=== PATIENT | female | born 1985 | race Caucasian/White ===

== ENCOUNTER → 2017-12-21 | Outpatient (CLI) | payer OTHER ==
--- NOTE | 2017-12-21 09:22 | US ---
EXAMINATION TYPE: US abdomen limited DATE OF EXAM: 12/21/2017 COMPARISON: US CLINICAL HISTORY: R94.5 Elevated LFT's. EXAM MEASUREMENTS: Liver Length: 18.0 cm Gallbladder Wall: Surgically absent CBD: 0.5 cm Right Kidney: 9.8 x 3.6 x 4.6 cm Patient of large body habitus. Pancreas: mostly obscured by bowel gas, portions visualized wnl Liver: Increased attenuation, decreased visualization of vessels suggestive of fatty infiltrate, enl arged Gallbladder: Surgically absent Evidence for sonographic Fraser's sign: no CBD: wnl Right Kidney: No hydronephrosis or masses seen IMPRESSION: Heterogenous hyperechoic hepatic echotexture and hepatomegaly, most commonly related to h epatic steatosis.
== END | disposition home or self-care (01) ==
LOC: RADUSWWP 07:42
PROVIDERS: ATTEND Internal Medicine
DX: R16.0 Hepatomegaly, not elsewhere classified (principal)
CPT/HCPCS: 76705

== ENCOUNTER 2020-05-18 14:59 | Emergency (ER) | payer OTHER ==
[2020-05-18 15:07] VITALS: RESP 18
[2020-05-18] MEDS ORDERED: MECLIZINE 12.5 MG TAB PO STA (15:16)
[2020-05-18] MEDS ORDERED: SODIUM CHLORIDE 0.9% 1,000 ML IV STA (15:16)
--- NOTE | 2020-05-18 15:35 | ED ---
General Adult HPI - General Chief complaint: Dizziness Stated complaint: dizziness Time Seen by Provider: 05/18/20 15:09 Source: patient, RN notes reviewed, old records reviewed Mode of arrival: ambulatory Limitations: no limitations - History of Present Illness Initial comments: 34-year-old female past medical history of asthma presenting with dizziness. Patient states her symptoms have been present since yesterday morning when she woke. She states she does feel somewhat unsteady on her feet. She denies focal numbness or weakness. Denies headache. Denies vision changes. She states that today all she had was a few crackers and otherwise has not eaten today. She denies chest pain or dyspnea. Denies palpitations. Denies abdominal pain. D enies diarrhea or vomiting. Denies fever. Denies URI symptoms. Denies ear pain. She is not currently on any medication. - Related Data Home Medications Medication Instructions Recorded Confirmed Ipratropium [place] [Atrovent Hfa] 2 puff INHALATION RT-Q6H PRN 06/30/16 06/30/16 Previous Rx's Medication Instructions Recorded Cephalexin [Keflex] 500 mg PO Q12HR #20 cap 05/18/20 Allergies Allergy/AdvReac Type Severity Reaction Status Date / Time No Known Allergies Allergy Verified 05/18/20 15:06 Review of Systems ROS Statement: Those systems with pertinent positive or pertinent negative responses have been documented in the HPI. ROS Other: All systems not noted in ROS Statement are negative. Past Medical History Past Medical History: Asthma Additional Past Medical History / Comment(s): Obstetric history: First was a vaginal delivery that was quite traumatic for the patient and she continues to have perineal pain. She then had 3 elective abortions. This is her fifth and she has had care with ma since 7 weeks. O+, abs neg, Rub Imm, HEp B neg, HIV NR, RPR NR. abnormal 1hr but normal 3hr GTT. History of Any Multi-Drug Resistant Organisms: None Reported Past Surgical History: Adenoidectomy, Cholecystectomy Additional Past Surgical History / Comment(s): D&C Past Anesthesia/Blood Transfusion Reactions: No Reported Reaction Past Psychological History: No Psychological Hx Reported Smoking Status: Current every day smoker Past Alcohol Use History: Occasional Past Drug Use History: None Reported - Past Family History Mother Family Medical History: No Reported History General Exam Limitations: no limitations General appearance: alert, in no apparent distress Head exam: Present: atraumatic, normocephalic Eye exam: Present: normal appearance, PERRL, EOMI. Absent: scleral icterus, conjunctival injection, nystagmus ENT exam: Present: mucous membranes dry Neck exam: Present: normal inspection. Absent: tenderness, meningismus Respiratory exam: Present: normal lung sounds bilaterally. Absent: respiratory distress, wheezes Cardiovascular Exam: Present: regular rate, normal rhythm GI/Abdominal exam: Present: soft. Absent: distended, tenderness Extremities exam: Present: normal inspection, normal capillary refill. Absent: pedal edema Neurological exam: Present: alert, oriented X3, CN II-XII intact, normal gait, other (Negative Romberg, normal [id number] bilaterally, no ataxia). Absent: motor sensory deficit Psychiatric exam: Present: normal affect, normal mood Skin exam: Present: warm, dry, intact. Absent: cyanosis, diaphoretic Course Vital Signs 05/18/20 15:03 Temperature 98.8 F Pulse Rate 89 Respiratory 18 Rate Blood Pressure 135/90 O2 Sat by Pulse 96 Oximetry EKG Findings - EKG Comments: EKG Findings:: EKG: Normal sinus rhythm, rate of 84 NE interval 1:30, QRS duration 78, QTC 441, no ST segment elevation Medical Decision Making - Medical Decision Making 34-year-old female with dizziness. No alarming features on history or physical exam. Symptoms have been present for 48 hours. No headache, no focal neurological finding is, no palpitations or chest pain. EKG is sinus rhythm with no ischemic changes. Patient has normal CBC, normal CMP, negative troponin, urinalysis does show 13 red cells, 3 white cells, occasional bacteria. His will be cultured and the patient will be started on Keflex. She will maintain oral hydration, she will eat regular healthy meals. She will return with worsening or changing symptoms. Patient given strict return parameters. - Lab Data Result diagrams: 05/18/20 15:28 05/18/20 15:28 Lab Results 05/18/20 05/18/20 05/18/20 Range/Units 15:28 15:28 15:28 WBC 6.5 (3.8-10.6) k/uL RBC 4.33 (3.80-5.40) m/uL Hgb 13.4 (11.4-16.0) gm/dL Hct 41.2 (34.0-46.0) % MCV 95.1 (80.0-100.0) fL MCH 31.0 (25.0-35.0) pg MCHC 32.6 (31.0-37.0) g/dL RDW 12.4 (11.5-15.5) % Plt Count 239 (150-450) k/uL Neutrophils % 58 % Lymphocytes % 28 % Monocytes % 5 % Eosinophils % 6 % Basophils % 2 % Neutrophils # 3.7 (1.3-7.7) k/uL Lymphocytes # 1.8 (1.0-4.8) k/uL Monocytes # 0.3 (0-1.0) k/uL Eosinophils # 0.4 (0-0.7) k/uL Basophils # 0.1 (0-0.2) k/uL Sodium 137 (137-145) mmol/L Potassium 4.1 (3.5-5.1) mmol/L Chloride 105 (98-107) mmol/L Carbon Dioxide 23 (22-30) mmol/L Anion Gap 9 mmol/L BUN 12 (7-17) mg/dL Creatinine 0.59 (0.52-1.04) mg/dL Est GFR (CKD-EPI)AfAm >90 (>60 ml/min/1.73 sqM) Est GFR (CKD-EPI)NonAf >90 (>60 ml/min/1.73 sqM) Glucose 126 H (74-99) mg/dL Calcium 9.2 (8.4-10.2) mg/dL Magnesium 1.9 (1.6-2.3) mg/dL Total Bilirubin 0.5 (0.2-1.3) mg/dL AST 29 (14-36) U/L ALT 39 H (4-34) U/L Alkaline Phosphatase 80 (38-126) U/L Troponin I <0.012 (0.000-0.034) ng/mL Total Protein 7.4 (6.3-8.2) g/dL Albumin 4.4 (3.5-5.0) g/dL Urine Color Urine Appearance (Clear) Urine pH (5.0-8.0) Ur Specific [place] (1.001-1.035) Urine Protein (Negative) Urine Glucose (UA) (Negative) Urine Ketones (Negative) Urine Blood (Negative) Urine Nitrite (Negative) Urine Bilirubin (Negative) Urine Urobilinogen (<2.0) mg/dL Ur Leukocyte Esterase (Negative) Urine RBC (0-5) /hpf Urine WBC (0-5) /hpf Ur Squamous Epith Cells (0-4) /hpf Urine Bacteria (None) /hpf Urine Mucus (None) /hpf Urine HCG, Qual (Not Detectd) 05/18/20 05/18/20 Range/Units 15:42 15:42 WBC (3.8-10.6) k/uL RBC (3.80-5.40) m/uL Hgb (11.4-16.0) gm/dL Hct (34.0-46.0) % MCV (80.0-100.0) fL MCH (25.0-35.0) pg MCHC (31.0-37.0) g/dL RDW (11.5-15.5) % Plt Count (150-450) k/uL Neutrophils % % Lymphocytes % % Monocytes % % Eosinophils % % Basophils % % Neutrophils # (1.3-7.7) k/uL Lymphocytes # (1.0-4.8) k/uL Monocytes # (0-1.0) k/uL Eosinophils # (0-0.7) k/uL Basophils # (0-0.2) k/uL Sodium (137-145) mmol/L Potassium (3.5-5.1) mmol/L Chloride (98-107) mmol/L Carbon Dioxide (22-30) mmol/L Anion Gap mmol/L BUN (7-17) mg/dL Creatinine (0.52-1.04) mg/dL Est GFR (CKD-EPI)AfAm (>60 ml/min/1.73 sqM) Est GFR (CKD-EPI)NonAf (>60 ml/min/1.73 sqM) Glucose (74-99) mg/dL Calcium (8.4-10.2) mg/dL Magnesium (1.6-2.3) mg/dL Total Bilirubin (0.2-1.3) mg/dL AST (14-36) U/L ALT (4-34) U/L Alkaline Phosphatase (38-126) U/L Troponin I (0.000-0.034) ng/mL Total Protein (6.3-8.2) g/dL Albumin (3.5-5.0) g/dL Urine Color Yellow Urine Appearance Cloudy H (Clear) Urine pH 6.0 (5.0-8.0) Ur Specific [place] 1.019 (1.001-1.035) Urine Protein Negative (Negative) Urine Glucose (UA) Negative (Negative) Urine Ketones Negative (Negative) Urine Blood Moderate H (Negative) Urine Nitrite Negative (Negative) Urine Bilirubin Negative (Negative) Urine Urobilinogen <2.0 (<2.0) mg/dL Ur Leukocyte Esterase Large H (Negative) Urine RBC 13 H (0-5) /hpf Urine WBC 3 (0-5) /hpf Ur Squamous Epith Cells 10 H (0-4) /hpf Urine Bacteria Occasional H (None) /hpf Urine Mucus Few H (None) /hpf Urine HCG, Qual Not Detected (Not Detectd) Disposition Clinical Impression: Dehydration, Dizziness Disposition: HOME SELF-CARE Condition: Good Instructions (If sedation given, give patient instructions): Dizziness (ED), Dehydration (ED), Urinary Tract Infection in Women (ED), Lightheadedness (ED) Additional Instructions: Please return the emergency department with worsening or changing symptoms Prescriptions: Cephalexin [Keflex] 500 mg PO Q12HR #20 cap Is patient prescribed a controlled substance at d/c from ED?: No Referrals: Hattie Antonio MD [Primary Care Provider] - 1-2 days Time of Disposition: 16:34
[2020-05-18 15:36] LABS: Basophils # (A) 0.1 k/uL (0-0.2); Basophils % (A) 2 %; Eosinophils # (A) 0.4 k/uL (0-0.7); Eosinophils % (A) 6 %; HCT 41.2 % (34.0-46.0); HGB 13.4 gm/dL (11.4-16.0); Lymphocytes # (A) 1.8 k/uL (1.0-4.8); Lymphocytes % (A) 28 %; MCHC 32.6 g/dL (31.0-37.0); MCV 95.1 fL (80.0-100.0); Mean Platelet Volume 8.7; Monocytes # (A) 0.3 k/uL (0-1.0); Monocytes % (A) 5 %; Neutrophils # (A) 3.7 k/uL (1.3-7.7); Neutrophils % (A) 58 %; Platelet Count 239 k/uL (150-450); RBC 4.33 m/uL (3.80-5.40); RDW 12.4 % (11.5-15.5); WBC 6.5 k/uL (3.8-10.6)
[2020-05-18 15:50] LABS: ALT 39 U/L (4-34); AST 29 U/L (14-36); African American GFR (CKD) >90 (>60 ml/min/1.73 sqM); Albumin 4.4 g/dL (3.5-5.0); Alkaline Phosphatase 80 U/L (38-126); Anion Gap 9 mmol/L; Blood Urea Nitrogen 12 mg/dL (7-17); Calcium 9.2 mg/dL (8.4-10.2); Carbon Dioxide 23 mmol/L (22-30); Chloride 105 mmol/L (98-107); Glucose 126 mg/dL (74-99); Magnesium 1.9 mg/dL (1.6-2.3); Non-African American GFR(CKD) >90 (>60 ml/min/1.73 sqM); Potassium 4.1 mmol/L (3.5-5.1); Sodium 137 mmol/L (137-145); Total Bilirubin 0.5 mg/dL (0.2-1.3); Total Protein 7.4 g/dL (6.3-8.2)
[2020-05-18 15:53] LABS: Appearance,Urine Cloudy (Clear); Bacteria,Urine Occasional /hpf; Bilirubin,Urine Negative (Negative); Blood,Urine Moderate (Negative); Color,Urine Yellow; Glucose,Urine (UA) Negative (Negative); Ketones,Urine Negative (Negative); Leukocyte Esterase,Urine Large (Negative); Mucus,Urine Few /hpf; Nitrite,Urine Negative (Negative); Protein,Urine Negative (Negative); RBC,Urine 13 /hpf (0-5); Specific Gravity,Urine 1.019 (1.001-1.035); Squamous Epithelial Cell,Urine 10 /hpf (0-4); Urobilinogen,Urine <2.0 mg/dL (<2.0); WBC,Urine 3 /hpf (0-5)
[2020-05-18 17:07] VITALS: BP 130/81; PULSE 77; TEMP 98.1
== END 2020-05-18 17:07 | disposition home or self-care (01) ==
LOC: EC 14:59
DX: R42 Dizziness and giddiness (principal); E86.0 Dehydration; J45.909 Unspecified asthma, uncomplicated; F17.200 Nicotine dependence, unspecified, uncomplicated
CPT/HCPCS: 36415; 80053; 81001; 81025; 83735; 84484; 85025; 93005; 96360; 99284

== ENCOUNTER 2021-07-20 07:00 | Emergency (ER) | payer OTHER ==
[2021-07-20 07:05] VITALS: BP 168/106; PULSE 91; RESP 18; TEMP 98.2
[2021-07-20] MEDS ORDERED: GELATIN SPONGE,ABSORB (SMALL) 1 EACH SPONGE TOPICAL STA (07:18)
[2021-07-20] MEDS ORDERED: DIPH,PERTUS(ACELL)TETVAC-LF 0.5 ML VIAL IM ONE (07:25)
[2021-07-20] MEDS ORDERED: LIDOCAINE 1% INJ 10MG/ML (20 ML MDV) SQ ONE (07:25)
[2021-07-20] MEDS ORDERED: oxyCODONE-APAP 10-325MG 1 EACH TAB PO STA (07:31)
--- NOTE | 2021-07-20 07:37 | ED ---
General Adult HPI - General Chief complaint: Wound/Laceration Stated complaint: Left finger laceration Time Seen by Provider: 07/20/21 07:15 Source: patient Mode of arrival: ambulatory Limitations: no limitations - History of Present Illness Initial comments: Dictation was produced using [employer] dictation software. please excuse any grammatical, word or spelling errors. Chief Complaint: 36-year-old female presents with traumatic amputation of left third digit History of Present Illness: Patient 36-year-old female no significant past medical history. She states that 1 hour prior to arrival she was in her house. She accidentally slammed the door on her third digit of her left hand. Patient elected her hand and noticed that the tip of her left digit was missing. Patient states that she has extreme pain to her left third digit. She does not report when her last tetanus shot was. Patient denies . She states her last menstrual period was a week ago. Denies that she can be . No other complaints. Patient placed the amputated piece into a paper towel and brought to the emergency room. The ROS documented in this emergency department record has been reviewed and confirmed by me. Those systems with pertinent positive or negative responses have been documented in the HPI. All other systems are other negative and/or noncontributory. PHYSICAL EXAM: General Impression: Alert and oriented x3, acute distress secondary to pain Left hand: Current medication amputation to the distal left third digit distal to the DIP. There is visualization of the distal bone of the tuft. Amputated portion measures approximately 1 cm in length encompasses the whole nail bed. Psych: Tearful ED course: 36-year-old female presents with traumatic amputation of the left third digit. Accident occurred approximate 1 hour prior to arrival. Vital signs upon arrival are within acceptable limits. Patient is in acute distress. Patient offered digital block for relief. I was able to put half a cc of anesthetic into the lateral digital nerve. Patient did not tolerate digital block well. she states that it was too painful and does not want me to inject anymore. Tetanus was updated. Patient denies . She would like a pain pill. Given a Percocet. Finger x-ray shows amputation of distal aspect of the left third digit involving soft tissue and bone. Patient is clean-cut amputation. Gelfoam was applied and bandage was placed. per case discussed with orthopedic surgery who recommends the patient be given referral to hand specialist Dr. Conklin - Related Data Home Medications Medication Instructions Recorded Confirmed Ipratropium [place] [Atrovent Hfa] 2 puff INHALATION RT-Q6H PRN 06/30/16 06/30/16 Previous Rx's Medication Instructions Recorded Cephalexin [Keflex] 500 mg PO Q12HR #20 cap 05/18/20 HYDROcodone/APAP 5-325MG [[place] 1 tab PO Q6HR PRN 3 Days #12 tab 07/20/21 5-325] Allergies Allergy/AdvReac Type Severity Reaction Status Date / Time No Known Allergies Allergy Verified 07/20/21 07:05 Review of Systems ROS Statement: Those systems with pertinent positive or pertinent negative responses have been documented in the HPI. ROS Other: All systems not noted in ROS Statement are negative. Past Medical History Past Medical History: Asthma Additional Past Medical History / Comment(s): Obstetric history: First was a vaginal delivery that was quite traumatic for the patient and she continues to have perineal pain. She then had 3 elective abortions. This is her fifth and she has had care with de since 7 weeks. O+, abs neg, Rub Imm, HEp B neg, HIV NR, RPR NR. abnormal 1hr but normal 3hr GTT. History of Any Multi-Drug Resistant Organisms: None Reported Past Surgical History: Adenoidectomy, Cholecystectomy Additional Past Surgical History / Comment(s): D&C Past Anesthesia/Blood Transfusion Reactions: No Reported Reaction Past Psychological History: No Psychological Hx Reported Smoking Status: Current every day smoker Past Alcohol Use History: Occasional Past Drug Use History: None Reported - Past Family History Mother Family Medical History: No Reported History General Exam Limitations: no limitations Course Vital Signs 07/20/21 07:04 Temperature 98.2 F Pulse Rate 91 Respiratory 18 Rate Blood Pressure 168/106 O2 Sat by Pulse 98 Oximetry Disposition Clinical Impression: Amputation, finger, traumatic Disposition: HOME SELF-CARE Condition: Fair Instructions (If sedation given, give patient instructions): Finger Amputation (ED) Prescriptions: HYDROcodone/APAP 5-325MG [[place] 5-325] 1 tab PO Q6HR PRN 3 Days #12 tab PRN Reason: Severe Pain Is patient prescribed a controlled substance at d/c from ED?: Yes If prescribed controlled substance>3 days was MAPS reviewed?: Prescribed <3 Days Referrals: Rubio Conklin DO [Doctor of Osteopathic Medicine] - 1-2 days
--- NOTE | 2021-07-20 07:54 | XR ---
Left third digit. HISTORY: Trauma. COMPARISON: None TECHNIQUE: 3 views of the left third digit were obtained. There is amputation of the tip of the third digit involving the soft tissues in the distal aspect of the distal phalanx. A small osseous structure is seen within the soft tissues adjacent to the volar a spect of the distal phalanx. IMPRESSION: Amputation of the distal aspect left third digit involving soft tissue and bone as described above.
--- NOTE | 2021-07-20 08:39 | P.PN ---
Progress Note - Text Progress Note Date: 07/20/21 I was called this morning on this patient by Dr. Brown in the ED. She sustained a traumatic finger tip amputation with exposed distal phalanx. I recommended that she follow-up with a hand-surgeon, but think it is reasonable to provide wound care, antibiotics and discharge home from the ED this morning. I recommended PROMPT follow-up with a hand surgeon early next week for definitive care. The patient will follow-up with hand surgeon Dr. [place] Conklin.
--- NOTE | 2021-07-20 08:45 | ED ---
Disposition Clinical Impression: Amputation, finger, traumatic Disposition: HOME SELF-CARE Condition: Fair Instructions (If sedation given, give patient instructions): Finger Amputation (ED) Prescriptions: Cephalexin [Keflex] 500 mg PO Q6HR 5 Days #20 cap HYDROcodone/APAP 5-325MG [[place] 5-325] 1 tab PO Q6HR PRN 3 Days #12 tab PRN Reason: Severe Pain Is patient prescribed a controlled substance at d/c from ED?: Yes If prescribed controlled substance>3 days was MAPS reviewed?: Prescribed <3 Days Referrals: Rubio Conklin DO [Doctor of Osteopathic Medicine] - 1-2 days
--- NOTE | 2021-07-20 11:03 | ED ---
Disposition Clinical Impression: Amputation, finger, traumatic Disposition: HOME SELF-CARE Condition: Fair Instructions (If sedation given, give patient instructions): Finger Amputation (ED) Prescriptions: Cephalexin [Keflex] 500 mg PO Q6HR 5 Days #20 cap Cephalexin [Keflex] 500 mg PO Q6HR 5 Days #20 cap HYDROcodone/APAP 5-325MG [[place] 5-325] 1 tab PO Q6HR PRN 3 Days #12 tab PRN Reason: Severe Pain HYDROcodone/APAP 5-325MG [[place] 5-325] 1 tab PO Q6HR PRN 3 Days #12 tab PRN Reason: Severe Pain Is patient prescribed a controlled substance at d/c from ED?: Yes If prescribed controlled substance>3 days was MAPS reviewed?: Prescribed <3 Days Referrals: Rubio Conklin DO [Doctor of Osteopathic Medicine] - 1-2 days
== END 2021-07-20 08:22 | disposition home or self-care (01) ==
LOC: EC 07:00
DX: S68.113A Complete traumatic metacarpophalangeal amputation of left middle finger, initial encounter (principal); J45.909 Unspecified asthma, uncomplicated; F17.200 Nicotine dependence, unspecified, uncomplicated; Z90.49 Acquired absence of other specified parts of digestive tract; W22.09XA Striking against other stationary object, initial encounter
CPT/HCPCS: 99283; 90471; 64450; 73140; 90715; J2001

== ENCOUNTER 2021-07-23 08:47 | Day surgery (SDC) | payer OTHER ==
[2021-07-22 12:37] VITALS: BMI 41.9
--- NOTE | 2021-07-22 13:04 | P.HPOR ---
History of Present Illness H&P Date: 07/22/21 Chief Complaint: Left middle finger amputation New Patient Hand Surgery H&P Office Note Age: 36 year Height: 5'5.5" Weight: 256 lbs BMI: 41.95 kg/m2 Subjective: This is a 36 year old female that presents today for initial evaluation regarding a right middle finger tip amputation that occurred on 07/20/21. The injury occurred when the patient accidentally slammed the bedroom door on her left middle finger which resulted in complete avulsion of the tip of her left middle finger. She brought the finger tip to the ED but it was found not to be amendable to replantation therefore bedside irrigation was performed and she was put in a finger dressing and splint and given Keflex which she has been taken. She denies any prior injury to the finger in the past. The 16 point Review of Systems has been reviewed with patient. Social history Smoking: current smoker Smoking Amount: 1/2 PPD Alcohol: occasional alcohol Past Medical History: ASTHMA Surgical / Procedural History: SECTION CHOLECYSTECTOMY TONSILLECTOMY/ADENOIDECTOMY Family History: Mother: alive & well. Father: unknown Sibling(s): none Medications: Rx: ProAir HFA 90 mcg/actuation aerosol inhaler Ref: 0 Instructions: inhale 1 - 2 puffs (90 - 180 mcg) by inhalation route every 4 hours as needed Physical Examination: LUE: AIN/PIN/Radial/Ulnar/Median motor intact. Radial/Ulnar/Median SILT. 2+/4 Radial/Ulnar pulses palpated. Remainder of examination of left middle finger limited due to patient not being able to tolerate complete dressing removal in office. She was able to show a picture of the injury which reveals a transverse tip amputation of the middle finger with complete avulsion of the distal soft tissue and nail plate distal to the level of the germinal matrix with exposed distal phalanx. Imaging: AP/Lateral/oblique views of the left middle finger demonstrate an amputation of the tip of the third digit with a small ossific fragment at the distal, volar and radial portion of the distal phalanx. No other acute fractures seen. Impression: 1.) Left middle finger distal tip amputation with exposed distal phalanx. Plan: Diagnosis and treatment options were discussed with the patient. Due to inadequate current soft tissue coverage of the distal phalanx tip I recommend surgical intervention involving revision amputation of the left middle finger. Risks and benefits of surgery were discussed with the patient including bleeding, infection, damage to surrounding tissue, neuroma formation, hypersensitivity, cold intolerance, nail deformity, shortening of digit, and possible need for further surgery and she was understanding of this and wished to proceed with surgical intervention. She may do daily dressing changes as needed with an occlusive dressing until the day of surgery and is to finish her course of antibiotics. Pre-operative labs are ordered and she will be scheduled for left middle finger revision amputation in the near future. -Rubio Conklin DO Orthopedic Hand/Upper Extremity Surgeon Past Medical History Past Medical History: Asthma Additional Past Medical History / Comment(s): Obstetric history: First was a vaginal delivery that was quite traumatic for the patient and she continues to have perineal pain. She then had 3 elective abortions. This is her fifth and she has had care with me since 7 weeks. O+, abs neg, Rub Imm, HEp B neg, HIV NR, RPR NR. abnormal 1hr but normal 3hr GTT. History of Any Multi-Drug Resistant Organisms: None Reported Past Surgical History: Adenoidectomy, Section, Cholecystectomy, Tonsillectomy Additional Past Surgical History / Comment(s): D&C Past Anesthesia/Blood Transfusion Reactions: No Reported Reaction Smoking Status: Current every day smoker - Past Family History Mother Family Medical History: No Reported History Medications and Allergies Home Medications Medication Instructions Recorded Confirmed Type Ipratropium [place] [Atrovent Hfa] 2 puff INHALATION RT-Q6H PRN 06/30/16 07/22/21 History Cephalexin [Keflex] 500 mg PO Q6HR 5 Days #20 cap 07/20/21 07/22/21 Rx HYDROcodone/APAP 5-325MG [[place] 1 tab PO Q6HR PRN 3 Days #12 tab 07/20/21 07/22/21 Rx 5-325] Allergies Allergy/AdvReac Type Severity Reaction Status Date / Time No Known Allergies Allergy Verified 07/20/21 07:05 Physical Examination Osteopathic Statement: *. No significant issues noted on an osteopathic structural exam other than those noted in the History and Physical/Consult.
[~2021-07-23 08:47] MED LIST: DEXAMETHASONE SOD PHOSPHATE 4 MG/ML 1 ML VIAL IV ONE; HYDROmorphone 0.5 MG/0.5 ML SYRINGE IVP PRN; LACTATED RINGERS 1,000 ML IV SCH; LIDOCAINE 1% (10MG/ML) FOR IV START INTRADERMA PRN; ONDANSETRON 4 MG/2 ML VIAL IVP ONE; SCOPOLAMINE 1.5MG/72HR PATCH TRANSDERM ONE
[2021-07-23 09:10] VITALS: TEMP 97.7
[2021-07-23] MEDS ORDERED: KETOROLAC 15 MG/ML 1 ML VIAL ONE (09:22)
[2021-07-23] MEDS ORDERED: fentaNYL (PF) 50 MCG/ML 2 ML AMP ONE (09:22)
[2021-07-23] MEDS ORDERED: MIDAZOLAM 2 MG/2 ML VIAL ONE (09:22)
[2021-07-23] MEDS ORDERED: LIDOCAINE 1% INJ 10MG/ML (20 ML MDV) ONE (09:22)
[2021-07-23] MEDS ORDERED: PROPOFOL 10 MG/ML 20 ML VIAL IV ONE (09:22)
[2021-07-23 09:30] LABS: HCT 41.7 % (34.0-46.0); MCH 32.5 pg (25.0-35.0); MCHC 33.4 g/dL (31.0-37.0); MCV 97.1 fL (80.0-100.0); Mean Platelet Volume 8.7; Platelet Count 222 k/uL (150-450); RDW 12.2 % (11.5-15.5)
[2021-07-23] MEDS ORDERED: BUPIVACAINE (PF) 0.5% 30 ML VIAL SQ ONE (09:32)
[2021-07-23] MEDS ORDERED: LIDOCAINE 1% INJ 10MG/ML (20 ML MDV) SQ ONE (09:32)
[2021-07-23 09:43] LABS: Potassium 4.4 mmol/L (3.5-5.1)
[2021-07-23 10:24] VITALS: BP 112/74; PULSE 72; RESP 16
--- NOTE | 2021-07-23 22:35 | P.OP ---
Date of Procedure: 07/23/21 Preoperative Diagnosis: Left middle finger amputation Postoperative Diagnosis: Same Procedure(s) Performed: 1.) Left middle finger revision amputation with neurectomy 2.) Germinal matrix nail bed ablation Anesthesia: ANTHONYA Surgeon: Rubio Conklin Estimated Blood Loss (ml): 0 Condition: stable Disposition: PACU Description of Procedure: This is a 36 year old female who sustained a left middle finger tip amputation after having her left middle finger slammed in a door resulting. She was found to have a complete left middle finger tip amputation with exposed bone and presents today for surgical intervention. Risks and benefits of surgery were discussed with the patient including bleeding, nail deformity, damage to surrounding tissue, infection, need for further surgery as well as risks of anesthesia including pulmonary embolism and even and the patient wished to proceed with surgical intervention. The patients was seen in the pre-operative area by myself. Consent and H&P were completed and updated. The correct extremity was marked in the pre-operative area by myself and all other questions were answered. Operative Narrative: The patient was brought to the operating room by the department of anesthesia. They remained on the portable stretcher and a rolling hand table was brought to the side of the operative extremity. The patient was then drifted off to sleep by the department of anesthesia. A nonsterile tourniquet was then applied to the operative extremity and the left upper extremity was then prepped and draped in normal sterile fashion. Pre-operative time out was performed indicating the correct patient, procedure and laterality. All in the room agreed. Pre-operative antibiotics were given prior to skin incision. The operative extremity was the exsanguinated with an esmarch bandage and the tourniquet was inflated to 250mmHg. The wound was irrigated with normal sterile saline and debridement of nonviable surrounding tissue was performed. The patient had a dorsal oblique amputation at the level of the eponychial fold with complete avulsion and abscence of sterile matrix and nail plate. Approximately 3mm of germinal matrix remained that was located underneath the eponychial fold with complete uncovered exposure of the remaining distal phalanx. She did appear to have abundant volar pulp tissue for soft coverage therefore decision to proceed with revision amputation with local advancement flap was made. [place] was used to shorten the distal phalanx back to the level of the eponychial fold to ensure adequate distal soft tissue coverage over the distal phalanx. Due to the level of distal phalanx soft tissue undercoverage and the lack of distal germinal/sterile matrix the remainder of the proximal germinal matrix was sharply excised and bovie cautery was used to ablate the remainder of the the proximal germinal matrix in its entirety taking care to preserve the terminal extensor tendon insertion as well as the FDP insertion at the distal phalanx. Distal nonviable sensory nerve branches were identified and sharply dissected with 15 blade scalpel. 4-0 chromic suture was then used to close volar pulp to dorsal soft tissue for adequate soft tissue coverage of the distal phalanx in a loose and tension free fashion. 8cc of 0.5% bupivicaine was the used to perform a digital block of the left middle finger. The wound was the irrigated with sterile saline and sterile dressing consisting of adaptic, bactiracin, 4x4s, cast padding and yajaira wrap was applied. The patient was then woken by the department of anesthesia and transferred to PACU in stable condition. Rubio Conklin D.O. Orthopedic Hand/Upper Extremity Surgeon
== END 2021-07-23 10:53 | disposition home or self-care (01) ==
LOC: OR 08:47
PROVIDERS: ATTEND Orthopaedic Surgery Hand Surgery
DX: S68.623A Partial traumatic transphalangeal amputation of left middle finger, initial encounter (principal); W49.9XXA Exposure to other inanimate mechanical forces, initial encounter; F17.210 Nicotine dependence, cigarettes, uncomplicated; J45.909 Unspecified asthma, uncomplicated; Z98.891 History of uterine scar from previous surgery; Z90.49 Acquired absence of other specified parts of digestive tract; Z98.890 Other specified postprocedural states; Z79.899 Other long term (current) drug therapy
CPT/HCPCS: 26952; 81025; 80051; 85027; J2250; J1100; J0690; J2405; J2001; J3010; J1885; J2704

== ENCOUNTER 2021-11-05 09:50 | Day surgery (SDC) | payer OTHER ==
[2021-11-03 08:50] VITALS: BMI 41.4
--- NOTE | 2021-11-03 09:55 | P.HPOR ---
History of Present Illness H&P Date: 11/03/21 Chief Complaint: Left middle finger nail deformity Subjective: This is a 36 year old female that presents today for a nail deformity complaint after undergoing a left middle finger revision amputation on 07/23/21. She has been doing well up until 3 weeks ago when she noticed new nail plate growth from underneath the skin of her revision amputation. She was minimally symptomatic at first but now she is having pain and sensitivity around the area of the nail plate growth. She has been working on ROM of the PIP joint and is now able to make a full fist. Physical Examination: LUE: AIN/PIN/Radial/Ulnar/Median motor intact. Radial/Ulnar/Median SILT. 2+/4 Radial/Ulnar pulses palpated. PIP ROM 0-95. Nail plate growth present at site of previous eponychial fold. No signs of infection, swelling around tip of finger without erythema. 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 Plan: Diagnosis and treatment options and were discussed with the patient. She is overall doing well in terms of regaining her range of motion but is now having persistent pain due to regrowth of her nail plate after having undergone germinal nailbed ablation at the time of her initial revision amputation. She would like to have the nail plate removed and undergo revision nailbed ablation. Risks and benefit of surgery including bleeding, infection, damage to surrounding tissue, need for further surgery, persistent nail growth, were discussed and the patient wished to go forward with surgery consisting of left middle finger revision germinal nailbed ablation. -Rubio Conklin DO Orthopedic Hand/Upper Extremity Surgeon Past Medical History Past Medical History: Asthma Additional Past Medical History / Comment(s): Obstetric history: First was a vaginal delivery that was quite traumatic for the patient and she continues to have perineal pain. She then had 3 elective abortions. This is her fifth and she has had care with me since 7 weeks. O+, abs neg, Rub Imm, HEp B neg, HIV NR, RPR NR. abnormal 1hr but normal 3hr GTT. History of Any Multi-Drug Resistant Organisms: None Reported Past Surgical History: Adenoidectomy, Section, Cholecystectomy, Tonsillectomy Additional Past Surgical History / Comment(s): D&C , 3 ELECTIVE ABORTIONS, REPAIR OF MIDDLE FINGERTIP AMPUTATION Past Anesthesia/Blood Transfusion Reactions: No Reported Reaction Smoking Status: Current every day smoker - Past Family History Mother Family Medical History: No Reported History Medications and Allergies Home Medications Medication Instructions Recorded Confirmed Type Ipratropium [place] [Atrovent Hfa] 2 puff INHALATION [id number] PRN 06/30/16 11/03/21 History Allergies Allergy/AdvReac Type Severity Reaction Status Date / Time No Known Allergies Allergy Verified 11/03/21 08:39 Physical Examination Osteopathic Statement: *. No significant issues noted on an osteopathic structural exam other than those noted in the History and Physical/Consult.
[~2021-11-05 09:50] MED LIST changes: -HYDROmorphone 0.5 MG/0.5 ML SYRINGE IVP PRN; -SCOPOLAMINE 1.5MG/72HR PATCH TRANSDERM ONE; +fentaNYL (PF) 50 MCG/ML 2 ML AMP IV PRN
== END 2021-11-05 10:08 | disposition home or self-care (01) ==
LOC: OR 09:50
PROVIDERS: ATTEND Orthopaedic Surgery Hand Surgery
DX: L60.8 Other nail disorders (principal); Z53.29 Procedure and treatment not carried out because of patient's decision for other reasons